=== PATIENT | female | born 1965 | race Hispanic/Latino ===

== ENCOUNTER 2016-08-21 07:40 | Outpatient (CLI) | payer BC ==
--- NOTE | 2016-08-21 14:05 | Mammography Report ---
BILATERAL DIGITAL SCREENING MAMMOGRAM with CAD : 08/21/16 07:40:00 CLINICAL: Routine screening.History of a remote benign biopsy. COMPARISON:06/01/15 FINDINGS: The breasts are heterogeneously dense, which may obscure small masses.Right upper outer biopsy clip with a stable partially circumscribed mass. No new mass, architectural distortion or suspicious calcifications. IMPRESSION: No mammographic evidence of malignancy. BI-RADS CATEGORY: 2 -- Benign RECOMMENDATION: Routine mammographic screening in one year. COMMENT: Patient follow-up letters are generated by our [employer] application.
== END 2016-08-21 07:41 | disposition home or self-care (01) ==
LOC: SPVWC 07:40
PROVIDERS: ATTEND Internal Medicine Endocrinology, Diabetes & Metabolism
DX: Z12.31 Encounter for screening mammogram for malignant neoplasm of breast (principal)
CPT/HCPCS: 77067; G0202